=== PATIENT | female | born 1960 | race Hispanic/Latino ===

== ENCOUNTER 2018-06-23 17:42 | Emergency (ER) | payer MEDICARE ==
[2018-06-23] MEDS ORDERED: ONDANSETRON HCL 4 MG/2 ML VIAL ONE (18:18)
[2018-06-23] MEDS ORDERED: MORPHINE SULFATE 2 MG/ML 1ML SYG ONE ×2 (18:19→19:21)
[2018-06-23 18:22] LABS: BASOPHILS % (AUTO) 0.5 % (0.0-5.0); EOSINOPHILS % (AUTO) 1.3 % (0.0-8.0); HEMATOCRIT 44.5 % (36-48); LYMPHOCYTES % (AUTO) 29.4 % (21.0-51.0); MEAN CORPUSCULAR HEMOGLOBIN 31.7 pg (27.0-33.0); MEAN CORPUSCULAR HGB CONC 33.5 g/dL (32.0-36.0); MEAN CORPUSCULAR VOLUME 94.6 fL (79-99); MONOCYTES % (AUTO) 7.6 % (3.0-13.0); NEUTROPHILS % (AUTO) 61.2 % (40.0-77.0); PLATELET COUNT (AUTO) 222 K/uL (130-400); RED CELL DISTRIBUTION WIDTH 13.7 % (11.0-15.5); WHITE BLOOD COUNT (AUTO) 7.5 K/uL (4.8-10.8)
[2018-06-23 18:32] LABS: POTASSIUM 3.4 mmol/L (3.5-5.1)
[2018-06-23] MEDS ORDERED: DEXAMETHASONE SOD PHOSPHATE 10MG/ML 1ML VIAL ONE (18:38)
[2018-06-23] MEDS ORDERED: KETOROLAC TROMETHAMINE 30MG/ML ONE (18:38)
== END 2018-06-23 19:30 | disposition home or self-care (01) ==
LOC: EDH 17:42
CPT/HCPCS: 36415; 73562; 80048; 85025; 96374; 96375; 96376; J1100; J1885; J2405

== ENCOUNTER 2018-09-13 20:24 | Emergency (ER) | payer MEDICARE | END 2018-09-13 21:08 | disposition home or self-care (01) | LOC: EDH 20:24 | DX: S93.115A Dislocation of interphalangeal joint of left lesser toe(s), initial encounter (principal); E11.9 Type 2 diabetes mellitus without complications; F32.9 Major depressive disorder, single episode, unspecified; F41.9 Anxiety disorder, unspecified; E07.9 Disorder of thyroid, unspecified; Z79.4 Long term (current) use of insulin; Z90.710 Acquired absence of both cervix and uterus; Z98.890 Other specified postprocedural states; W18.39XA Other fall on same level, initial encounter; Y93.01 Activity, walking, marching and hiking; Y92.009 Unspecified place in unspecified non-institutional (private) residence as the place of occurrence of the external cause; Y99.8 Other external cause status | CPT/HCPCS: 28660; 73630 ==

== ENCOUNTER → 2020-03-22 | Outpatient (CLI) | payer MEDICARE, OTHER | END | disposition home or self-care (01) | LOC: RAH 11:05 | PROVIDERS: ATTEND Family Medicine | DX: E03.8 Other specified hypothyroidism (principal) | CPT/HCPCS: 76536 ==